=== PATIENT | female | born 1965 | race Caucasian/White ===

== ENCOUNTER → 2017-01-26 | Outpatient (CLI) | payer OTHER ==
[2017-01-26 18:11] LABS: CH 30.3; HDW 2.11; HGB 13.7 gm/dL (11.4-16.0); MCHC 32.5 g/dL (31.0-37.0); MCV 92.2 fL (80.0-100.0); Mean Platelet Volume 7.8; RBC 4.55 m/uL (3.80-5.40); RDW 13.3 % (11.5-15.5); WBC 6.7 k/uL (3.8-10.6)
[2017-01-26 18:24] LABS: % Iron Saturation 15.4 % (20-50)
[2017-01-27 01:16] LABS: DHEA Sulfate 90.1 ug/dL (26.0-430.0)
[2017-01-28 11:04] LABS: Vitamin D, 1, 25-Dihydroxy 86 pg/mL (20 - 79)
[2017-01-28 13:38] LABS: T4, Total 7.1 ug/dL (4.5 - 10.9)
[2017-01-28 17:58] LABS: Thyroid Stim Immun Quant <0.10 IU/L (<0.10)
== END | disposition home or self-care (01) ==
LOC: LABWHC1 17:27
PROVIDERS: ATTEND Family Medicine
DX: Z01.89 Encounter for other specified special examinations (principal); R53.82 Chronic fatigue, unspecified
CPT/HCPCS: 36415; 81291; 82306; 82607; 82627; 82652; 82728; 83519; 83540; 83550; 84436; 84439; 84443; 84445; 84480; 84481; 84482; 85027; 86376; 86800